=== PATIENT | male | born 1980 ===

== ENCOUNTER 2016-10-07 17:58 | Emergency (ER) | payer BC ==
[2016-10-07 18:10] VITALS: BP 130/89
--- NOTE | 2016-10-07 18:28 | UC ---
Throat Pain/Nasal Walter HPI - HPI Summary HPI Summary: 36 yo male with sore throat and fever x 2 days swollen glands no n/v/d - History of Current Complaint Chief Complaint: UCGeneralIllness Stated Complaint: THROAT SWELLING,SORE Time Seen by Provider: 10/07/16 18:19 Hx Obtained From: Patient Onset/Duration: Gradual Onset, Lasting Days Severity: Moderate Pain Intensity: 4 Pain Scale Used: 0-10 Numeric Cough: None Associated Signs & Symptoms: Positive: Fever - Epiglottits Risk Factors Epiglottis Risk Factors: Negative - Allergies/Home Medications Allergies/Adverse Reactions: Allergies Allergy/AdvReac Type Severity Reaction Status Date / Time No Known Allergies Allergy Verified 10/07/16 18:10 Home Medications: Home Medications Phenol (Antiseptic) [Chloraseptic] 1 spr TOPICAL Q4HR 10/07/16 [History Confirmed 10/07/16] PMH/Surg Hx/FS Hx/Imm Hx Previously Healthy: Yes - Surgical History Surgical History: Yes Surgery Procedure, Year, and Place: Right Knee Surgery- ACL - Family History Known Family History: Negative: Cardiac Disease, Hypertension, Diabetes - Social History Alcohol Use: None Substance Use Type: None Smoking Status (MU): Never Smoked Tobacco - Immunization History Most Recent Influenza Vaccination: Not UTD Review of Systems Constitutional: Fever, Chills Skin: Negative Eyes: Negative ENT: Sore Throat Respiratory: Negative Cardiovascular: Negative Gastrointestinal: Negative Genitourinary: Negative Motor: Negative Neurovascular: Negative Musculoskeletal: Negative Neurological: Negative Psychological: Negative All Other Systems Reviewed And Are Negative: Yes Physical Exam Triage Information Reviewed: Yes Appearance: Well-Appearing, No Pain Distress, Well-Nourished Vital Signs: Initial Vital Signs Temp 100.9 F 10/07/16 18:06 Pulse 86 10/07/16 18:06 Resp 16 10/07/16 18:06 BP 130/89 10/07/16 18:06 Pulse Ox 97 10/07/16 18:06 Vital Signs Reviewed: Yes Eyes: Positive: Conjunctiva Clear ENT: Positive: Hearing grossly normal, Pharyngeal erythema, TMs normal, Tonsillar swelling, Tonsillar exudate. Negative: Nasal drainage, TM bulging, TM dull Dental: Negative: Gross Decay/Caries @, Dental Fracture @, Abscess @ Neck: Positive: Supple, Enlarged Nodes @ - tender ant cerv adenopathy R>L Respiratory: Positive: Lungs clear, Normal breath sounds, No respiratory distress Cardiovascular: Positive: RRR, No Murmur. Negative: Tachycardia, Bradycardia Musculoskeletal: Positive: ROM Intact, No Edema Neurological: Positive: Alert, Muscle Tone Normal Psychological Exam: Normal Skin Exam: Normal Throat Pain/Nasal Course/Dx - Course Course Of Treatment: RS (-) - Differential Dx/Diagnosis Provider Diagnoses: acute pharyngitis Discharge - Discharge Plan Condition: Stable Disposition: HOME Prescriptions: Prednisone 60 mg PO DAILY #6 tab Patient Education Materials: Pharyngitis (ED) Additional Instructions: rest fluids tylenol recheck in 2-4 days if not better strep test was negative
[2016-10-07] MEDS ORDERED: predniSONE TAB* 20 MG PO ONE (18:50)
== END 2016-10-07 19:14 | disposition home or self-care (01) ==
LOC: UCEAST 17:58
DX: J02.9 Acute pharyngitis, unspecified (principal)
CPT/HCPCS: 87651; 99212; G0463; J7512

== ENCOUNTER 2017-12-16 09:42 | Emergency (ER) | payer BC ==
[2017-12-16 10:04] VITALS: BP 141/97
--- NOTE | 2017-12-16 10:31 | UC ---
Skin Complaint HPI - HPI Summary HPI Summary: 37 yo male presents with rash and sore throat. He tells me that his son was dx' d with hand, foot, mouth last week. Pt had a fever 4 days ago that last into the next day. Fever went away and he developed a rash on his hands and around his mouth. He is pretty sure this is hand, foot, mouth - but what brings him in is yellow crusts around his nose. Denies fever, chills. - History of Current Complaint Chief Complaint: UCGeneralIllness Time Seen by Provider: 12/16/17 10:30 Stated Complaint: RASH Hx Obtained From: Patient Onset/Duration: Gradual Onset Onset Severity: Mild Current Severity: Mild Pain Intensity: 4 Pain Scale Used: 0-10 Numeric - Allergy/Home Medications Allergies/Adverse Reactions: Allergies Allergy/AdvReac Type Severity Reaction Status Date / Time No Known Allergies Allergy Verified 12/16/17 10:04 Review of Systems Constitutional: Fever Skin: Rash Eyes: Negative ENT: Negative Respiratory: Negative Cardiovascular: Negative Gastrointestinal: Negative Neurovascular: Negative Neurological: Negative Psychological: Negative All Other Systems Reviewed And Are Negative: Yes PMH/Surg Hx/FS Hx/Imm Hx - Additional Past Medical History Additional PMH: None Previously Healthy: Yes - Surgical History Surgical History: Yes Surgery Procedure, Year, and Place: Right Knee Surgery- ACL - Family History Known Family History: Positive: None Negative: Cardiac Disease, Hypertension, Diabetes - Social History Occupation: Employed Full-time Lives: With Family Alcohol Use: None Substance Use Type: None Smoking Status (MU): Never Smoked Tobacco - Immunization History Most Recent Influenza Vaccination: Not UTD Most Recent Tetanus Shot: 2014 Physical Exam - Summary Physical Exam Summary: GENERAL: NAD. WDWN. No pain distress. SKIN: 1mm erythematous papules and blisters scattered on b/l hands and around mouth, scant on feet. About the nares there is yellow crusted drainage. No streaking, bleeding, or active drainage. HEENT: Head: AT/NC Eyes: Conjunctiva clear without inflammation or discharge. Ears: Hearing grossly normal. TMs intact, no bulging, erythema, or edema. Nose: Nares as above. Nasal mucosa pink and moist. NTTP maxillary and frontal sinus. Throat: Posterior oropharynx without exudates, erythema, or tonsillar enlargement. Uvula midline. NECK: Supple. Nontender. No lymphadenopathy. CHEST: No accessory muscle use. Breathing comfortably and in no distress. CV: RRR. Without m/r/g. NEURO: Alert. CN II-XII grossly intact. PSYCH: Age appropriate behavior. Triage Information Reviewed: Yes Vital Signs: Initial Vital Signs Temp 98.9 F 12/16/17 09:59 Pulse 67 12/16/17 09:59 Resp 18 12/16/17 09:59 BP 141/97 12/16/17 09:59 Pulse Ox 100 12/16/17 09:59 Course/Dx - Course Course Of Treatment: Hand foot mouth. Impetigo. - Diagnoses Provider Diagnoses: Hand foot mouth disease. Impetigo Discharge - Sign-Out/Discharge Documenting (check all that apply): Discharge/Admit/Transfer - Discharge Plan Condition: Stable Disposition: HOME Prescriptions: Mupirocin 2% OINT* [Bactroban 2 % Oint*] 1 applic TOPICAL BID #1 tube Patient Education Materials: Hand, Foot, and Mouth Disease (ED) Referrals: No Primary Care Phys,NOPCP [Primary Care Provider] - Additional Instructions: If you develop a fever, shortness of breath, chest pain, new or worsening symptoms - please call your PCP or go to the ED. Your blood pressure was high at todays visit. Please see your primary provider within 4 weeks for recheck and re-evaluation. - Billing Disposition and Condition Condition: STABLE Disposition: Home
== END 2017-12-16 10:50 | disposition home or self-care (01) ==
LOC: UCEAST 09:42
DX: B08.4 Enteroviral vesicular stomatitis with exanthem (principal); L01.00 Impetigo, unspecified
CPT/HCPCS: 99212; G0463

== ENCOUNTER 2019-05-20 10:28 | Emergency (ER) | payer BC, OTHER ==
[2019-05-20 10:45] VITALS: BP 124/80
--- NOTE | 2019-05-20 12:12 | UC ---
Throat Pain/Nasal Walter HPI - HPI Summary HPI Summary: Patient is a 38-year-old male presenting with complaint of sore throat and bilateral ear pain. Patient states his was here 2 days ago and diagnosed with strep throat. Denies fever and chills. Denies cough. Denies other URI symptoms. - History of Current Complaint Chief Complaint: UCRespiratory Stated Complaint: SORE THROAT EAR PAIN Hx Obtained From: Patient Onset/Duration: Gradual Onset, Lasting Days Severity: Moderate Pain Intensity: 7 Pain Scale Used: 0-10 Numeric - Allergies/Home Medications Allergies/Adverse Reactions: Allergies Allergy/AdvReac Type Severity Reaction Status Date / Time No Known Allergies Allergy Verified 05/20/19 10:45 PMH/Surg Hx/FS Hx/Imm Hx Previously Healthy: Yes - Surgical History Surgical History: Yes Surgery Procedure, Year, and Place: Right Knee Surgery- ACL - Family History Known Family History: Positive: None Negative: Cardiac Disease, Hypertension, Diabetes - Social History Occupation: Employed Full-time Lives: With Family Alcohol Use: None Substance Use Type: None Smoking Status (MU): Never Smoked Tobacco - Immunization History Most Recent Influenza Vaccination: Not UTD Most Recent Tetanus Shot: 2014 Review of Systems All Other Systems Reviewed And Are Negative: No Constitutional: Positive: Negative ENT: Positive: Sore Throat, Ear Ache - b/l Respiratory: Positive: Negative Cardiovascular: Positive: Negative Musculoskeletal: Positive: Negative Neurological: Positive: Negative Physical Exam Triage Information Reviewed: Yes Appearance: Well-Appearing, No Pain Distress, Well-Nourished Vital Signs: Initial Vital Signs Temp 99.3 F 05/20/19 10:42 Pulse 94 05/20/19 10:42 Resp 16 05/20/19 10:42 BP 124/80 05/20/19 10:42 Pulse Ox 100 05/20/19 10:42 Vital Signs Reviewed: Yes Eyes: Positive: Conjunctiva Clear ENT: Positive: Hearing grossly normal, Pharyngeal erythema, TMs normal, Tonsillar swelling, Tonsillar exudate, Uvula midline. Negative: Nasal congestion, Nasal drainage Neck: Positive: Supple, No Lymphadenopathy, Tenderness @ - tonsillar nodes Respiratory Exam: Normal Respiratory: Positive: Lungs clear, Normal breath sounds, No respiratory distress Cardiovascular Exam: Normal Cardiovascular: Positive: RRR Neurological: Positive: Alert Psychological: Positive: Age Appropriate Behavior Throat Pain/Nasal Course/Dx - Course Course Of Treatment: I treated the patient with amoxicillin given strep exposure at home. Instructed to follow up with pcp if symptoms persist. Patient voiced understanding and agreed with treatment plan. - Differential Dx/Diagnosis Provider Diagnosis: Strep throat exposure, Exudative pharyngitis Discharge ED - Sign-Out/Discharge Documenting (check all that apply): Patient Departure All imaging exams completed and their final reports reviewed: No Studies - Discharge Plan Condition: Stable Disposition: HOME Prescriptions: Amoxicillin PO (*) [Amoxicillin 500 MG CAP*] 500 mg PO Q12H #20 cap Patient Education Materials: Strep Throat (ED) Referrals: [facility] [Outside] - If Needed Additional Instructions: As discussed, you tested positive for strep throat today. Take amoxicillin as prescribed for the treatment of strep throat. You may take ibuprofen and/or tylenol as directed for fever and pain relief. You may use over the counter throat sprays or lozenges for symptomatic relief. Get plenty of rest and fluids. Follow up with the [facility] if symptoms do not resolve within 10 days. - Billing Disposition and Condition Condition: STABLE Disposition: Home - Attestation Statements Provider Attestation: Per institutional requirements, I have reviewed the chart, however, I was not consulted specifically or made aware of this patient by the midlevel provider. I did not personally evaluate, interact with , or disposition this patient.
== END 2019-05-20 12:17 | disposition home or self-care (01) ==
LOC: UCEAST 10:28
DX: J02.9 Acute pharyngitis, unspecified (principal); Z20.818 Contact with and (suspected) exposure to other bacterial communicable diseases; H92.03 Otalgia, bilateral
CPT/HCPCS: 99212; G0463